=== PATIENT | male | born 1960 | race Caucasian/White ===

== ENCOUNTER → 2017-03-01 | Outpatient (CLI) | payer BC ==
[~2017-03-01] MED LIST: AMLO10TA2 PO; ASPI-515 PO; DOXY100C15 PO; DOXY100C2 PO; HYDR473S47 PO; LISI1TAB5 PO; NITR100C6 PO; NITROFURANTOIN PO; OMEP-110 PO; OXYC5CAP4 PO; PEPCID PO; TRAM50TA2 PO
[2017-03-01 08:45] LABS: ASPARTATE AMINO TRANSFERASE 15 U/L (15-37); BLOOD UREA NITROGEN 16 mg/dL (7-18)
== END | disposition home or self-care (01) ==
LOC: STAR 07:19
PROVIDERS: ATTEND Urology
DX: Z01.818 Encounter for other preprocedural examination (principal); N35.9 Urethral stricture, unspecified
CPT/HCPCS: 36415; 80053; 81001; 85025; 87086; 93005

== ENCOUNTER 2017-03-29 09:50 | Day surgery (SDC) | payer BC ==
[~2017-03-29] VITALS: Ht 188 cm; Wt 170.0 kg
[2017-03-29] MEDS ORDERED: TRIAMCINOLONE ACETONIDE 40 MG/ML, 1ML ONE (10:01)
[2017-03-29] MEDS ORDERED: LACTATED RINGERS 1,000 ML IV SCH (10:14)
[2017-03-29] MEDS ORDERED: LIDOCAINE 1%, 2ML ONE (10:17)
[2017-03-29 10:21] VITALS: BP 111/76
[2017-03-29] MEDS ORDERED: LIDOCAINE 1%, 2ML SQ PRN (10:30)
[2017-03-29] MEDS ORDERED: VERAPAMIL 2.5 MG/ML, 2ML ONE (12:28)
[2017-03-29] MEDS ORDERED: CEFAZOLIN 1,000 MG ONE (13:08)
[2017-03-29] MEDS ORDERED: PROPOFOL 10 MG/ML, 20ML ONE (13:08)
[2017-03-29] MEDS ORDERED: ONDANSETRON 2MG/ML, 2ML ONE (13:08)
[2017-03-29] MEDS ORDERED: FENTANYL PF 100 MCG/2ML ONE (13:18)
[2017-03-29] MEDS ORDERED: TRIAMCINOLONE ACETONIDE 40 MG/ML, 1ML IM ONE (13:25)
[2017-03-29] MEDS ORDERED: VERAPAMIL 2.5 MG/ML, 2ML IVPush ONE (13:25)
[2017-03-29] MEDS ORDERED: HYDROmorphone 1 MG/ML, 1ML IV PRN (13:30)
[2017-03-29] MEDS ORDERED: ONDANSETRON 2MG/ML, 2ML IVPush PRN (13:30)
[2017-03-29] MEDS ORDERED: hydrALAzine 20 MG/ML, 1ML IV PRN (13:30)
[2017-03-29] MEDS ORDERED: ACETAMINOPHEN 325 MG TABLET PO PRN (13:30)
[2017-03-29] MEDS ORDERED: LABETALOL 5MG/ML, 20ML IV PRN (13:30)
[2017-03-29] MEDS ORDERED: FENTANYL PF 100 MCG/2ML IV PRN (13:30)
[2017-03-29] MEDS ORDERED: OXYcodone 5 MG/5 ML ORAL.SOL UDC PO PRN (13:30)
== END 2017-03-29 14:57 | disposition home or self-care (01) ==
LOC: OUT 09:50
PROVIDERS: ATTEND Urology
DX: N35.8 Other urethral stricture (principal); I10 Essential (primary) hypertension; E66.01 Morbid (severe) obesity due to excess calories; Z68.42 Body mass index [BMI] 45.0-49.9, adult; Z98.890 Other specified postprocedural states; Z88.0 Allergy status to penicillin; K21.9 Gastro-esophageal reflux disease without esophagitis; N40.0 Benign prostatic hyperplasia without lower urinary tract symptoms; Z87.440 Personal history of urinary (tract) infections; M19.90 Unspecified osteoarthritis, unspecified site; Z90.49 Acquired absence of other specified parts of digestive tract; Z98.84 Bariatric surgery status; Z96.653 Presence of artificial knee joint, bilateral; Z72.89 Other problems related to lifestyle; Z87.891 Personal history of nicotine dependence
CPT/HCPCS: 52281; C1725; J0690; J2405; J2704; J3010; J3301; J3490; J7120

== ENCOUNTER 2017-06-13 06:21 | Inpatient (IN) | payer BC ==
[~2017-06-13] VITALS: Ht 188 cm; Wt 169.8 kg
[~2017-06-13 06:21] MED LIST changes: +OXYC5CAP2 PO; -OXYC5CAP4 PO
[2017-06-13] MEDS ORDERED: SODIUM CHLORIDE 0.9% 1,000 ML IV ONE (06:27)
[2017-06-13] MEDS ORDERED: SODIUM CHLORIDE 0.9% 1,000ML IVBOLUS ONE (06:30)
[2017-06-13] MEDS ORDERED: SODIUM CHLORIDE FLUSH 10ML SYR IVF ONE (06:30)
[2017-06-13 06:48] LABS: HEMATOCRIT 35.8 % (39.2-51.8); HEMOGLOBIN 11.3 g/dL (13.7-18.0); WHITE BLOOD COUNT 6.1 x10^3/uL (3.4-10)
[2017-06-13 07:00] LABS: ASPARTATE AMINO TRANSFERASE 23 U/L (15-37); BLOOD UREA NITROGEN 10 mg/dL (7-18)
[2017-06-13] MEDS ORDERED: CHARCOAL/SORBITOL 50 GM/240 ML PO ONE (07:00)
[2017-06-13 07:13] LABS: ACETAMINOPHEN < 2 mcg/mL (10-30)
[2017-06-13 07:18] LABS: DAU SCREEN DISCLAIMER
[2017-06-13] MEDS ORDERED: CHARCOAL/SORBITOL 50 GM/240 ML ONE (07:38)
[2017-06-13] MEDS ORDERED: NS + 20MEQ KCL 1,000 ML IV SCH (08:33)
[2017-06-13] MEDS ORDERED: FAMOTIDINE 20 MG TABLET ONE (08:54)
[2017-06-13] MEDS ORDERED: NS + 20MEQ KCL 1,000 ML IV ONE (08:54)
[2017-06-13] MEDS: FAMOTIDINE 20 MG TABLET PO SCH ×2 (08:57→20:03)
[2017-06-13] MEDS ORDERED: ONDANSETRON 2MG/ML, 2ML IVPush PRN (09:00)
[2017-06-13] MEDS ORDERED: ONDANSETRON ODT 4 MG PO PRN (09:00)
[2017-06-13] MEDS ORDERED: LABETALOL 5MG/ML, 20ML IVPush PRN (09:00)
[2017-06-13 10:08] VITALS: BP 121/73
[2017-06-13 10:10] VITALS: BP 121/73
[2017-06-13 12:24] VITALS: BP 131/87
[2017-06-13] MEDS: ACETAMINOPHEN 325 MG TABLET PO PRN ×2 (17:23→21:43)
[2017-06-13 18:51] VITALS: BP 141/86
[2017-06-14 00:35] VITALS: BP 118/76
[2017-06-14 05:53] LABS: HEMATOCRIT 34.6 % (39.2-51.8); WHITE BLOOD COUNT 6.4 x10^3/uL (3.4-10)
[2017-06-14 06:03] LABS: BLOOD UREA NITROGEN 7 mg/dL (7-18)
[2017-06-14 06:28] LABS: ASPARTATE AMINO TRANSFERASE 16 U/L (15-37); FERRITIN 14.7 ng/mL (26-388); TOTAL IRON BINDING CAPACITY 476 mcg/dL (250-450)
[2017-06-14 06:30] VITALS: BP 116/79
[2017-06-14] MEDS: FAMOTIDINE 20 MG TABLET PO SCH ×2 (07:49→20:00)
[2017-06-14] MEDS: ACETAMINOPHEN 325 MG TABLET PO PRN ×2 (07:49→20:00)
[2017-06-14 14:43] VITALS: BP 129/85
[2017-06-14] MEDS ORDERED: POTASSIUM CHLORIDE 20 MEQ TAB.ER.PRT PO ONE (16:00)
[2017-06-14 20:00] VITALS: BP 118/83
[2017-06-15 02:00] VITALS: BP 109/75
[2017-06-15] MEDS: ACETAMINOPHEN 325 MG TABLET PO PRN ×2 (05:59→21:43)
[2017-06-15 06:18] LABS: BLOOD UREA NITROGEN 12 mg/dL (7-18)
[2017-06-15 06:46] VITALS: BP 110/71
[2017-06-15] MEDS: FAMOTIDINE 20 MG TABLET PO SCH ×2 (08:45→21:29)
[2017-06-15] MEDS ORDERED: POTASSIUM CHLORIDE 20 MEQ TAB.ER.PRT PO ONE (17:00)
[2017-06-15 17:04] VITALS: BP 102/73
[2017-06-15] MEDS: SERTRALINE 50MG TABLET PO SCH (17:10)
[2017-06-15 19:00] VITALS: BP 119/84
[2017-06-16] VITALS: BP 113/72
[2017-06-16 06:51] VITALS: BP 119/82
[2017-06-16] MEDS: SERTRALINE 50MG TABLET PO SCH (08:40)
[2017-06-16] MEDS: FAMOTIDINE 20 MG TABLET PO SCH (08:40)
[2017-06-16 11:59] VITALS: BP 138/84
[2017-06-16] MEDS ORDERED: SERT50TA5 PO (12:06)
== END 2017-06-16 15:34 | disposition home or self-care (01) | DRG 918 ==
LOC: ED 06:34 → EDIP 08:16 → 4WST 10:30 → DCLOUNGE 06-16 15:21
PROVIDERS: ADMIT Internal Medicine
DX: T46.4X2A Poisoning by angiotensin-converting-enzyme inhibitors, intentional self-harm, initial encounter (principal); I11.9 Hypertensive heart disease without heart failure; E44.1 Mild protein-calorie malnutrition; Z68.41 Body mass index [BMI] 40.0-44.9, adult; D50.9 Iron deficiency anemia, unspecified; F12.90 Cannabis use, unspecified, uncomplicated; E66.01 Morbid (severe) obesity due to excess calories; E87.6 Hypokalemia; F32.9 Major depressive disorder, single episode, unspecified; Z96.653 Presence of artificial knee joint, bilateral; F41.1 Generalized anxiety disorder; I45.10 Unspecified right bundle-branch block; Z81.8 Family history of other mental and behavioral disorders; Z86.010 Personal history of colon polyps; Z87.891 Personal history of nicotine dependence; Z98.84 Bariatric surgery status; Y92.098 Other place in other non-institutional residence as the place of occurrence of the external cause; Z90.49 Acquired absence of other specified parts of digestive tract; Z88.8 Allergy status to other drugs, medicaments and biological substances
CPT/HCPCS: 36415; 71010; 80048; 80053; 80307; 80329; 82607; 82728; 82746; 83036; 83540; 83550; 83735; 84100; 85025; 93005; 99285; J3480; G0480; J7030